=== PATIENT | female | born 1985 | race Caucasian/White ===

== ENCOUNTER 2018-10-17 07:26 | Day surgery (SDC) | payer SELFPAY ==
[2018-10-14 11:11] VITALS: BMI 23.2
[2018-10-17] VITALS (8 sets, daily range): BP systolic 93–109; BP diastolic 46–60; PULSE 61–86; RESP 14–16; TEMP 36.4–36.8; O2SAT 97–100; BMI 23.1
[2018-10-17] MEDS: Doxycycline 100 MG CAPSULE PO (07:56)
[2018-10-17 08:18] LABS: Hematocrit 39.7 % (37-47); Hemoglobin 13.8 g/dL (12.0-15.0); Mean Corp Hgb Conc 34.8 g/dL (32-36); Mean Corpuscular Hgb 32.5 pg (27.0-32.0); Mean Corpuscular Volume 93.6 fL (81-99); Mean Platelet Vol. 9.5 fl (6.2-12.0); Platelet Count 170 K/mm3 (150-450); RBC Distribution Width CV 13.1 % (11.6-14.6); RBC Distribution Width SD 44.7 fl (35.1-43.9); Red Blood Count 4.24 M/mm3 (4.2-5.4); White Blood Count 7.7 K/mm3 (4.4-11.0)
[2018-10-17 08:35] LABS: Thyroid Stim Hormone (TSH) 1.23 uIU/mL (0.358-3.74)
--- NOTE | 2018-10-17 09:00 | POC_PTH ---
PATIENT: JOHANNY CORRIGAN LOC: [facility] – [place] U#:[id number] AGE/SX: 33/F ROOM: RE10/17/[address]: Dr. Charlene Torres MD : [id number] BED: DIS: 10/17/2018 SPEC #: [id number] RECD: 10/17/18 10:09 STATUS: TOMAS VIRGIE #: [id number] FLORECITA: 10/17/18 09:[address]: Charlene Torres DEPT: SURGICAL PATHOLOGY RECD BY: Randall Kinney ENTERED: 10/17/18 13:33 SP TYPE: PROD CONC OTHR DR: Dr. Edi Hendrix MD Tissues: Product of conception, NOS Procedures: Surgery Specimen Level IV HEADER OPERATION: Dilation and curettage, suction PRE-OP DIAGNOSIS: Missed TISSUE SUBMITTED: Products of conception MICROSCOPIC DIAGNOSIS Products of conception: Immature chorionic villi, decidua and gestational endometrium (products of conception). SJ:melida 10/18/18 COMMENT The remaining specimen will be saved for the patient per protocol. MICROSCOPIC DESCRIPTION Slides are reviewed. GROSS DESCRIPTION Received in fixative is one container labeled with the patient's name and designated products of conception. The specimen consists of multiple irregular fragments of pink-red soft tissue mixed with hemorrhagic soft tissue measuring in aggregate 8 x 8 x 2 cm. tissue is not identified. Defensive Secondary Coach tissue is submitted in two cassettes. / SJ:rg 10/17/18 TC:5 CPT: 89656
[2018-10-17] MEDS: miSOPROStol 200 MCG Tablet (09:48)
--- NOTE | 2018-10-17 10:46 | DCINST_ITS ---
Discharge Diet: No Restrictions Discharge Activity: Return to Normal Activity, May Shower, May Take a Tub Bath Allergies/Adverse Reactions: Allergies No Known Allergies Allergy (Verified 10/14/18 11:15) Medications to take at Discharge NK 10/16/18 Primary Care Physician: Edi Hendrix MD [Primary Care Provider] - Test Results: Test results from this visit will be discussed in further detail at your follow- up appointment, if applicable. Please Follow Up With: Charlene Torres MD - [phone]
--- NOTE | 2018-10-17 10:46 | PCM.HPOB.BLA ---
- Problem List (1) Missed Status: Acute History and Physical Date of Admission: 10/17/18 Intake Vital Signs 10/14/18 Height 5 ft 4 in 10/14/18 Weight: 135 lb 8 oz 10/14/18 Body Mass Index (BMI) 23.2 10/14/18 Blood Pressure 108/72 Intake Visit Reasons: NOB, LMP 08/14 [employer] Required: No Is patient in pain?: No Allergies No Known Allergies Allergy (Verified 10/14/18 11:15) Medications docosahexanoic acid 200 mg capsule mg PO cap 10/14/18 [History Confirmed 10/14/18] Last Menstral Period: 08/10/18 Zika: Zika virus screening: Negative : No PFSH PFSH Medical History (Updated 10/14/18 @ 14:08 by LUIS MIGUEL Calvert) Gestational diabetes (Acute) Surgical History (Updated 10/14/18 @ 11:18 by Viviana Block) S/P tonsillectomy (Resolved) Family History (Updated 10/14/18 @ 11:18 by Viviana Block) Grandfather Diabetes Social History (Updated 10/14/18 @ 18:31 by LUIS MIGUEL Calvert) Smoking Status: Never smoker alcohol intake: never substance use type: does not use caffeine: Yes what type of physical activity do you participate in: walking do you feel safe at home: Yes additional social history: Amrit-Tc Pregancy History 7 Elective abortions Hx Para 5 Spontaneous abortions 1 Hx # Term Pregnancies Ectopic pregnancies Hx # Pregnancies Multiple births # of living children 4 Past Pregnancies Del. Date Name GA/Weeks Outcome Route Bth Weight Gen Labor Lgth Anesthesia Del Locatn Provider FOB Unknown 11/2010-Miscarriage at 12 week 08/22/05 Ish 39 live - full term 8lbs 12oz Male 12 hours epidural Sheridan Montez 03/14/07 Dori 26 still 1lbs 7oz Female Sheridan Montez 09/23/08 Bharath 39 live - full term 9lbs 5oz Male 2 hours none Sheridan Montez 08/20/11 Eric 39 live - full term 8lbs 12oz Female epidural Sheridan Montez 08/09/14 Sarah 40 live - full term 7lbs 12oz Female 12 hours none Sheridan Montez Delivery Date: No notes to display Delivery Date: 08/22/05 On 10/14/18 @ 11:21 Viviana Block No issues during or delivery. Delivery Date: 03/14/07 On 10/14/18 @ 11:22 Viviana Block Gestational diabetes. Heart defect Delivery Date: 09/23/08 On 10/14/18 @ 11:24 Viviana Block Gestational diabetes Delivery Date: 08/20/11 On 10/14/18 @ 11:25 Viviana Block Did not test for gestational diabetes she continued to check BS Delivery Date: 08/09/14 On 10/14/18 @ 11:29 Viviana Block Did not check glucose test but checked her BS. HPI NOB, LMP 08/14: Details: JOHANNY CORRIGAN is a 33 year old who presents for New OB visit. OB Visit Menstrual History Last Menstral Period: 08/10/18 Reported LMP: definite Normal amount/duration: Yes On hormonal BC at conception: No hCG+: 09/10/18 Antepartum Record Genetic Screening: Congenital Heart Defect: Patient (daughter /unknown defect), Neural Tube Defect: Other, Hemoglobinopathy Or Carrier: Other, Cystic Fibrosis: Other, Chromosome Abnormality: Patient (daughter possible trisomy 18), Yousif-Sachs: Other, Hemophilia: Other, Intellectual Disability/Autism: Other, Recurrent Loss/Stillbirth: Patient (daughter 26 wk), Other Structural Defect: Other, Other Genetic Disease: Other, Maternal Metabolic Disorder: Other Infection History: Live with someone with TB or Exposed to TB: No, Patient or Partner has history of Genital Herpes: No, Rash or Viral illness since last mentrual period: No, Prior GBS-Infected child: No, History of STD: No, HIV Infection: No, History of Hepatitis: No, Recent travel outside of [place]: No, Concern for Hep exposure: No, Varicella immune: Yes (had chicken pox) Medical History Medical History: Positive: Diabetes (gestational), Varicosities/phlebitis (legs, vulva), Seasonal allergies, Operations/hospitalizations ( X 6; tonsils), Negative: Hypertension, Heart disease, Auto-immune disorder, Kidney disease/UTI, Neurologic/epilepsy, Psychiatric, Depression/ depression, Hepatitis/liver disease, Thyroid dysfunction, Trauma/domestic violence, History of blood transfusions, D (Rh) Sensitized, Pulmonary (e.g.,TB,Asthma), Drug/latex allergies/reactions, Breast, Economic Development Specialist surgery, Anesthetic complications, History of abnormal pap, Uterine anomaly/sonia, Infertility, Anti-retroviral treatment, Relevant family history, Other ROS Const Reports as per HPI Card Denies chest pain, Denies shortness of breath Resp Denies shortness of breath GI Denies change in stools Denies abnormal vaginal bleeding, Denies difficulty urinating, Denies vaginal discharge, Denies vaginal odor, Denies vaginal itching Exam Const General: cooperative, healthy appearing, well developed Nutritional Appearance: average body habitus, well nourished Orientation: oriented x3 Neck Neck: normal visual inspection Neck mass: No Thyroid: thyroid normal Chest Chest palpation & inspection: normal inspection of the chest Breast inspection: normal inspection of the breasts, normal inspection of the axillae Resp Effort & Inspection: normal respiratory effort GI Inspection: normal to inspection Palpation: soft, no masses, nontender External Female Exam: normal external appearance, normal appearance of the urethra Urethra: normal appearance of the urethra Speculum Exam - Vagina: normal appearance of the vagina, normal vaginal discharge Speculum Exam - Cervix: normal appearance of the cervix, closed cervix, other (thin prep pap with reflex HPV, GCC collected) Bimanual Exam- Vagina & Uterus: normal bimanual exam, uterine size normal (10 weeks), uterine shape normal Bimanual Exam- Adnexa, other: normal adnexae, no adnexal masses, adnexae non-tender Other: TV US per Dr. Torres: 9w 6d fetus noted but no motion, no heart tones, no color flow on doppler. Skin General: no rashes or lesions noted, turgor normal Assessment & Plan Problems 1. Missed with demise before 20 completed weeks of gestation O02.1 Plan Discussion between patient and Dr. Torres concerning options of managment. Patient prefers intervention at this time D&C procedure discussed-risks, benefits. She wishes to proceed and this will be scheduled for patient. Coding Level of Care Code Off vis,new,level 4 Diagnoses Missed with demise before 20 completed weeks of gestation O02.1 UPDATE- I have seen the patient and performed any clinically relevant updates to the history and physical exam. Charlene Torres MD
--- NOTE | 2018-10-18 04:16 | PCM.OPRPT ---
Problem List (1) Missed Status: Acute Report of Operation Date of Procedure: 10/17/18 Pre-Operative Diagnosis: MISSED AB Post-Operative Diagnosis: same Surgery/Procedure Performed:: suction d and c Description of Surgical Findings:: 12 week uterus Type of Anesthesia:: Local MAC Special Medications: cytotec Specimen's removed: poc Drains: none Estimated Blood Loss (mL): 100 Fluids Replaced: crystalloid Description of Procedure: Patient was taken to the operating room and placed under MAC local anesthesia. She was prepped and draped in the normal sterile fashion the dorsal lithotomy position. Bladder was drained of clear urine and anterior lip of the cervix was grasped and the uterus sounded to 12 cm. Cervix was progressively dilated to allow passage of a 12mm suction curette. Progressive passes were made removing the retained products of conception without complication. Sharp curettage confirmed complete removal of the retained products. All instruments were removed from the vagina and excellent hemostasis was noted and the patient was taken to recovery in stable condition. The cervix was very soft and the uterus was noted to be a little boggy but bleeding was within normal limits, thousand micrograms of Cytotec were given rectally to help with uterine tone Grafts/Implants Used: none - Complications none
== END 2018-10-17 11:33 | disposition home or self-care (01) ==
LOC: SDC 07:28 → AC 07:29
PROVIDERS: Family Provider Family Medicine; PCP Family Medicine; Referring Provider Obstetrics & Gynecology; Visit Provider Obstetrics & Gynecology
PROC: (CPT 59820; principal; 2018-10-17 08:45)
DX: O02.1 Missed abortion (principal)
CPT/HCPCS: 01965; 59820; 36415; 84443; 85027; 86850; 86900; 88305; J7120; J2405

== ENCOUNTER → 2019-07-25 14:28 | Outpatient (CLI) | payer OTHER, SELFPAY ==
[2019-07-25 13:49] VITALS: BMI 23.1
[2019-07-25 14:56] LABS: Absolute Neutrophil Count 7.9 X10^3/uL (2.0-7.7); Basophil# 0.02 X10^3/uL; Basophil% 0.2 % (0-1); Hematocrit 40.9 % (37-47); Hemoglobin 13.8 g/dL (12.0-15.0); Lymphocyte % 14.7 % (19-41); Mean Corp Hgb Conc 33.7 g/dL (32-36); Mean Corpuscular Hgb 31.4 pg (27.0-32.0); Mean Corpuscular Volume 93.2 fL (81-99); Mean Platelet Vol. 9.4 fl (6.2-12.0); Monocyte# 0.49 X10^3/uL; Monocyte% 4.8 % (0-10); NRBC Flagged by Analyzer 0 % (0-5); Neutrophil # 7.94 X10^3/uL (2.7-7.7); Platelet Count 183 K/mm3 (150-450); RBC Distribution Width SD 44.2 fl (35.1-43.9); Red Blood Count 4.39 M/mm3 (4.2-5.4); White Blood Count 10.2 K/mm3 (4.4-11.0)
[2019-07-25 16:30] LABS: Amphetamine Urine VISTA NEGATIVE (<1000 ng/mL); Barbiturate Urine VISTA NEGATIVE (< 200 ng/mL); Benzodiazepine Urine VISTA NEGATIVE (< 200 ng/mL); Cocaine Urine VISTA NEGATIVE (< 300 ng/mL); Ecstacy Urine VISTA NEGATIVE (< 500 ng/mL); Methadone Urine VISTA NEGATIVE (< 300 ng/mL); PCP Urine VISTA NEGATIVE (< 25 ng/mL); THC Urine VISTA NEGATIVE (< 50 ng/mL); Vista UDS pH Range 6
[2019-07-25 19:49] LABS: Chlamydia Trachomatis by PCR Negative (Negative); Neisserai gonorrhoeae by PCR Negative (Negative); Probe Check PASS; Sample Adequacy Control PASS; Specimen Processing Control PASS
[2019-07-28 09:35] LABS: HIV - WCH Non-Reactive (Nonreactive); Hepatitis B Surface Antigen Non-Reactive (Nonreactive); Hepatitis C Antibody Non-Reactive (Nonreactive); Rubella IgG 344.7 IU/mL
[2019-07-31 02:30] LABS: Rapid Plasmin Reagin (RPR) NONREACTIVE (NONREACTIVE)
== END ==
PROVIDERS: PCP Family Medicine; Referring Provider Obstetrics & Gynecology; Visit Provider Obstetrics & Gynecology
DX: Z34.90 Encounter for supervision of normal pregnancy, unspecified, unspecified trimester (principal)
CPT/HCPCS: 36415; 80307; 85025; 86592; 86703; 86762; 86803; 86850; 86900; 86901; 87086; 87088; 87340; 87491; 87591

== ENCOUNTER → 2019-10-10 12:42 | Outpatient (CLI) | payer OTHER, SELFPAY ==
[2019-08-29 15:19] VITALS: BMI 23.1
--- NOTE | 2019-10-10 12:54 | US_ITS ---
STUDY: SECOND AND THIRD TRIMESTER OBSTETRICAL ULTRASOUND REASON FOR EXAM: Female, 34 years old. Anatomy. LMP: 05/25/2019. TECHNIQUE: Transabdominal and Transvaginal TECHNICAL QUALITY: Adequate. PRIOR ULTRASOUND: None. FINDINGS: There is a single intrauterine fetus. The fetus is in a cephalic presentation. There is demonstrated cardiac activity with a heart rate of 147 bpm. There is a normal amniotic fluid volume. The largest amniotic fluid pocket measures 6.4 cm. The placenta is posterior in location and is not low lying. There is evidence of a succenturiate lobe of the placenta along the anterior wall close to the cervix. There are Grade 1 placental changes. The cervix measures 5.76 cm in length. The adnexal regions are not visualized. BIOMETRY: BPD: 4.51 cm: 19 weeks, 4 days HC: 17.6 cm: 20 weeks, 0 days AC: 14.95 cm: 20 weeks, 1 days FL: 3.27 cm: 20 weeks, 1 days CI: 78.3 FL/BPD: 72.54 FL/HC: 18.6 FL/AC: 21.98 HC/AC: 1.18 age by current US: 19 weeks, 6 days. DEB by current US: 02/28/2020. Estimated weight: 337 grams, +/- 50 grams, 78 %. Age by LMP: 19 weeks, 5 days. DEB by LMP: 02/29/2020. ANATOMY: Gender: 1 Cranium: Normal lateral ventricles. Normal choroid plexus. Normal cerebellum. Normal cisterna magna. Normal face, nose and lips. Chest: Normal 4-chamber heart. Abdomen/Pelvis: Normal diaphragm. Normal stomach. Normal abdominal wall. Normal cord insertion. Normal 3 vessel cord. Normal kidneys. Normal bladder. Spine: Normal cervical spine. Normal thoracic spine. Normal lumbar spine. Normal sacrum. Extremities: Normal bilateral upper extremities. Normal bilateral lower extremities. US/OB Anatomy Scan IMPRESSION: 1. Live single intrauterine 19 weeks, 6 days. DEB is 02/28/2020. 2. EFW of 337 g. 3. Adequate amniotic fluid. 4. Posterior grade 1 placenta. There is a succenturiate lobe along the anterior wall close to the cervix. There is no evidence of previa. 5. VERTEX presentation. 6. No evidence of abnormality. Electronically Signed: Edvin Barillas DO at 16:09 EDT Tel [phone], Service support ,
== END ==
PROVIDERS: PCP Family Medicine; Referring Provider Obstetrics & Gynecology; Visit Provider Obstetrics & Gynecology
DX: Z34.80 Encounter for supervision of other normal pregnancy, unspecified trimester (principal)
CPT/HCPCS: 76805

== ENCOUNTER → 2019-12-01 10:31 | Outpatient (CLI) | payer OTHER, SELFPAY ==
[2019-12-01 09:54] VITALS: BMI 23.1
[2019-12-01 11:01] LABS: Absolute Lymphocyte Count 1.21 X10^3/uL (0.83-4.51); Basophil# 0.03 X10^3/uL; Basophil% 0.3 % (0-1); Eosinophil# 0.12 X10^3/uL; Eosinophils% 1.2 % (0-5); Hematocrit 37.1 % (37-47); Hemoglobin 12.8 g/dL (12.0-15.0); Lymphocyte # 1.21 X10^3/ul (4.0); Lymphocyte % 12.1 % (19-41); Mean Corp Hgb Conc 34.5 g/dL (32-36); Mean Corpuscular Hgb 33.2 pg (27.0-32.0); Mean Corpuscular Volume 96.1 fL (81-99); Monocyte# 0.56 X10^3/uL; Monocyte% 5.6 % (0-10); NRBC Flagged by Analyzer 0 % (0-5); Neutrophil # 8.02 X10^3/uL (2.7-7.7); Neutrophil % 80.4 % (47-70); Platelet Count 185 K/mm3 (150-450); RBC Distribution Width CV 13.1 % (11.6-14.6); RBC Distribution Width SD 45.5 fl (35.1-43.9); Red Blood Count 3.86 M/mm3 (4.2-5.4)
[2019-12-01 11:18] LABS: Hemoglobin A1c 4.6 % (3.8-5.6)
== END ==
PROVIDERS: PCP Family Medicine; Referring Provider Obstetrics & Gynecology; Visit Provider Obstetrics & Gynecology
DX: Z34.90 Encounter for supervision of normal pregnancy, unspecified, unspecified trimester (principal)
CPT/HCPCS: 36415; 83036; 85025

== ENCOUNTER → 2020-02-06 14:32 | Outpatient (CLI) | payer OTHER, SELFPAY ==
[2020-01-08 10:15] VITALS: BMI 27.8
[2020-02-06 13:48] VITALS: BMI 28.7
--- NOTE | 2020-02-06 14:35 | US_ITS ---
STUDY: SECOND AND THIRD TRIMESTER OBSTETRICAL ULTRASOUND - LIMITED REASON FOR EXAM: Female, 34 years old GROWTH LMP: 05/24/2019 PRIOR ULTRASOUND: 10/10/2019 TECHNIQUE: Transabdominal TECHNICAL QUALITY: Adequate. FINDINGS: There is a single intrauterine fetus. The fetus is in a cephalic presentation. There is demonstrated cardiac activity with a heart rate of 140 bpm. There is a normal amniotic fluid volume. The largest amniotic fluid pocket measures 7.6 cm. The amniotic fluid index (JACKIE) is 23 cm. The placenta is fundal in location. There are Grade 1 placental changes. Cervix cannot be clearly seen. BIOMETRY: BPD: 8.97 cm: 36 weeks, 2 days HC: 33.4 cm: 38 weeks, 1 days AC: 34.2 cm: 38 weeks, 1 days FL: 7.4 cm: 37 weeks, 4 days Age by LMP: 36 weeks, 6 days. DEB by LMP: 02/28/2020. age by prior US: 36 weeks, 6 days. DEB by prior US: 02/28/2020. age by current US: 37 weeks, 3 days. DEB by current US: 02/24/2020. Estimated weight: 3315 grams, +/- 497 grams, 79 percentile. US/OB Limited With Biometrics IMPRESSION: Single live intrauterine at current gestational age of 37 weeks 3 days as detailed above Electronically Signed: Alcon Bowens DO at 8:17 EST Tel , Service support ,
== END ==
PROVIDERS: PCP Family Medicine; Referring Provider Obstetrics & Gynecology; Visit Provider Obstetrics & Gynecology
DX: O09.292 Supervision of pregnancy with other poor reproductive or obstetric history, second trimester (principal); O09.299 Supervision of pregnancy with other poor reproductive or obstetric history, unspecified trimester; Z86.32 Personal history of gestational diabetes; O09.90 Supervision of high risk pregnancy, unspecified, unspecified trimester; Z3A.00 Weeks of gestation of pregnancy not specified
CPT/HCPCS: 76816; 87077; 87081

== ENCOUNTER 2020-02-11 13:40 | Inpatient (IN) | payer SELFPAY, OTHER ==
[2020-01-08 10:15] VITALS: BMI 27.8
[2020-02-11] VITALS (37 sets, daily range): BP systolic 82–112; BP diastolic 44–72; PULSE 77–109; TEMP 36.7–37.6; O2SAT 96–100; BMI 28.6; BMI 30.5
[2020-02-11] MEDS: Lactated Ringers 1,000 ML 999 ML IV ×2 (11:36→12:35)
[2020-02-11 11:50] LABS: Hematocrit 37.9 % (37-47); Hemoglobin 13.1 g/dL (12.0-15.0); Mean Corp Hgb Conc 34.6 g/dL (32-36); Mean Corpuscular Hgb 33.1 pg (27.0-32.0); Mean Corpuscular Volume 95.7 fL (81-99); Mean Platelet Vol. 9.1 fl (6.2-12.0); Platelet Count 144 K/mm3 (150-450); RBC Distribution Width CV 13.7 % (11.6-14.6); RBC Distribution Width SD 47.7 fl (35.1-43.9); Red Blood Count 3.96 M/mm3 (4.2-5.4); White Blood Count 7.4 K/mm3 (4.4-11.0)
[2020-02-11 11:58] LABS: Glucose 77 mg/dL (74-106)
[2020-02-11] MEDS: Lactated Ringers 1,000 ML 50 ML IV (14:31)
[2020-02-11] MEDS: Oxytocin 30 units/NS 500 ml 30 UNITS/500 ML IV.SOLN IV (14:44)
[2020-02-11 16:00] LABS: Bedside Glucose 81 mg/dL (70-110)
[2020-02-11 17:15] LABS: Bedside Glucose 77 mg/dL (70-110)
[2020-02-11] MEDS: Lactated Ringers 500 ML 999 ML IV (20:08)
[2020-02-11] MEDS: fentaNYL-bupivacaine (epidural) 100 ML BAG EPIDURAL (21:04)
[2020-02-11 21:55] LABS: Bedside Glucose 78 mg/dL (70-110)
[2020-02-11 21:55] LABS: Bedside Glucose 109 mg/dL (70-110)
[2020-02-11] MEDS: Oxytocin 30 units/NS 500 ml 30 UNITS/500 ML IV.SOLN 334 UNITS IV (22:35)
--- NOTE | 2020-02-11 22:41 | HP.PCM_ITS ---
- Problem List (1) tachycardia Status: Acute (2) 36 weeks gestation of Status: Acute Comment: electronic covid test ordered 02/04/2020sc (scheduled for 02/18/2020 at 0900) (3) Advanced maternal age (AMA) in Status: Acute Comment: genetic counseling provided, patient declines testing. plan 36 week growth US. US 76% growth noted (4) History of gestational diabetes in prior , currently Status: Acute Comment: x3; declined glucola- Tested blood sugars at home normal. (5) History of stillbirth in patient in second trimester, antepartum Status: Acute Comment: Heart defect, possible trisomy 18-2nd /girl- stillbirth at 26 wk (6) Influenza vaccination declined Status: Acute Comment: 12/01/2019sc (7) Placenta succenturiata Status: Acute Comment: small extra lobe, no previa. no additional fu needed. (8) Positive GBS test Status: Acute Comment: PCN in labor. (9) Status: Acute Qualifiers: Comment: Declines genetic, carrier and NTD. anatomy scan nl ordered [facility]. 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: No Is patient in pain?: No Allergies No Known Allergies Allergy (Verified 02/11/20 11:15) Medications cranberry 400 mg capsule 400 mg PO DAILY 01/08/20 [History Confirmed 02/11/20] vitamin #56-iron 35 mg and 5 mg-folic acid 1 mg-dha capsule 1 cap PO DAILY 01/08/20 [History Confirmed 02/11/20] progesterone 50 mg/mL intramuscular oil 5 mg IM DAILY 01/08/20 [History Confirmed 02/11/20] Last Menstral Period: 05/25/19 Zika: Zika virus screening: Negative : No PFSH PFSH Medical History Gestational diabetes (Acute) Surgical History S/P tonsillectomy (Resolved) Family History Grandfather Diabetes Social History (Updated 02/11/20 @ 11:[address] January Fish MD) Smoking Status: Never smoker alcohol intake: never substance use type: does not use caffeine: Yes what type of physical activity do you participate in: walking do you feel safe at home: Yes additional social history: -Tc Pregancy History 8 Elective abortions Hx Para 4 Spontaneous abortions 1 Hx # Term Pregnancies Ectopic pregnancies Hx # Pregnancies Multiple births # of living children 4 Past Pregnancies Del. Date Name GA/Weeks Outcome Route Bth Weight Infant Gen Labor Lgth Anesthesia Del Locatn Provider FOB Unknown 11/2010-Miscarriage at 12 week Unknown 10/14/18 SAB still 08/22/05 Ish 39 live - full term 8lbs 12oz Male 1 2 hours epidural Sheridan Montez 03/14/07 Dori 26 still 1lbs 7oz Female Hodan Montez 09/23/08 Bharath 39 live - full term 9lbs 5oz Male 2 hours none Sheridan Montez 08/20/11 Eric 39 live - full term 8lbs 12oz Female epidural Sheridan Montez 08/09/14 Sarha 40 live - full term 7lbs 12oz Female 12 hours none Sheridan Montez Delivery Date: No notes to display Delivery Date: No notes to display Delivery Date: 08/22/05 No issues during or delivery. Viviana Block Delivery Date: 03/14/07 Gestational diabetes. Heart defect Viviana Block Delivery Date: 09/23/08 Gestational diabetes Viviana Block Delivery Date: 08/20/11 Did not test for gestational diabetes she continued to check BS Viviana Block Delivery Date: 08/09/14 Did not check glucose test but checked her BS. Viviana Block HPI 37WK OB : Details: JOHANNY CORRIGAN is a 34 year old who presents for routine OB visit. OB Visit DEB Calculator Estimated Delivery Date Method Current WG Current Estimate 02/29/20 LMP (Certain) 37w 3d Expected Delivery Route/Plan Labor Preferences- labor support person: Tc pain management options preferred: prefers natural but open to epidural cut cord/dad catch: no : yes PP control planned: NFP discussed possible routes of delivery and associated risks: discussed possible delivery modalities and possible indications for each including R/B/A of , VAVD, FAVD, and CS. questions answered. special requests: None Specific Issue/Plans flu vaccine: declined tdap vaccine: declined rhogam: na LARC form signed: declined. movement and labor precautions reviewed. Problem list reviewed and updated with the most current plan of care details and appropriate orders placed. Relevant counseling for the gestational age provided. Continue routine care and follow up unless otherwise noted in visit notes/problem list details Initial Weight: 144 lb Date EGA Weight BP Urine Prot Glucose FHR FuHt Pres Dilation Effaced St Visit Note 08/29/19 13w 5d 149 lb (+5 lb) 116/76 Negative Negative 155 SM- no vb cramping doing well, anxiety less. new ob labs reviewed. plan wilmar stephanie scan and visit next time 10/10/19 19w 5d 152 lb (+8 lb) 106/72 150 SM- no vb cramping 11/05/19 23w 3d 156 lb (+12 lb) 104/70 Negative Negative 150 SM- no vb cramping. reviewed anatomy scan results and answered covid questions. 12/01/19 27w 1d 159 lb (+15 lb) 110/70 Negative Negative 150 28 SM- no vb lof good fm no regular ctx. reviewed home BS and mostly within normal limits. cbc and HgA1c ordered. declined flu and tdap vaccines 12/22/19 30w 1d 162 lb (+18 lb) 100/62 Negative Negative 140 30 SM- discussed brith control options- considering PPTL or vasectomy. 01/08/20 32w 4d 162 lb (+18 lb) 101/68 140 32 Cephalic SM- no vb lof good fm no regular ctx discussed varicose vein supportive therapy 01/28/20 35w 3d 167 lb 6 oz (+23 lb 6 oz) 112/78 Negative Negative 145 35 Cephalic GP - no LOF, VB, DFM, ctx. Growth US 02/05. 02/06/20 36w 5d 167 lb 2 oz (+23 lb 2 oz) 108/78 Negative Negative 150 37 Cephalic 1 50 -2 GP - no LOF, VB, DFM, ctx . GBS today. Discussed COVID testing. 02/11/20 37w 3d 167 lb (+23 lb) 110/82 Negative Negative 170 37 Cephalic 2 50 -2 GP - no LOF, VB, DFM, ctx . GBS positive. Discussed labor preferences and routes of delivery. FHR tachy initially- NST done. GP - no LOF, VB, DFM, ctx. GBS positive. Discussed labor preferences and routes of delivery. FHR tachy initially- NST done and remains tachy. Sent to triage for monitoring. ACOG First Trimester First Trimester: Desire for , Alcohol, Tobacco Cessation, Illicit/Recreational Drug/Substance Use, Intimate Partner Violence, Barriers to care, Unstable Housing, Communication Barriers, Environmental/Work Hazards, Anticipated Course of Care, Toxoplasmosis Precations, Use of Any medications, Sexual activity, Exercise, Dental Care, Sauna/Hot tub use, Seat Belt use, Childbirth classes/Hospital facilities, , Travel, Indications for US and Screening for Aneuploidy Diagnostics Diagnostics Diagnostics Blood Type A POSITIVE 07/25/19 Antibody Screen NEGATIVE 07/25/19 HIV 1&2 Antibody Non-Reactive (Nonreactive) 07/25/19 Rubella IgG Antibody 344.7 IU/mL 07/25/19 Hgb Pending 02/11/20 Hct Pending 02/11/20 RPR NONREACTIVE (NONREACTIVE) 07/25/19 Details: HIV: Urine Culture: Sequential Screen: NIPT Screen: ROS Const Reports system reviewed and no additional complaints, except as docu Eyes Reports system reviewed and no additional complaints, except as docu ENT Reports system reviewed and no additional complaints, except as docu Card Reports system reviewed and no additional complaints, except as docu Resp Reports system reviewed and no additional complaints, except as docu GI Reports system reviewed and no additional complaints, except as docu Reports system reviewed and no additional complaints, except as docu, Denies abnormal vaginal bleeding, Denies painful urination, Denies nipple discharge, Denies pelvic pain, Denies vaginal discharge, Denies vaginal odor, Denies vaginal itching Musc Reports system reviewed and no additional complaints, except as docu Skin/Breast Reports system reviewed and no additional complaints, except as docu, Denies nipple discharge Neuro Yes system reviewed and no additional complaints, except as docu Psych Reports system reviewed and no additional complaints, except as docu Endo Reports system reviewed and no additional complaints, except as docu Exam Const General: cooperative, healthy appearing, comfortable, no acute distress, well developed, well groomed Nutritional Appearance: average body habitus, well nourished Orientation: alert, awake, oriented x3 HENMT Head: normal to inspection, normocephalic, atraumatic Eyes Pupils: PERRL, accommodation normal Resp Effort & Inspection: normal respiratory effort, able to speak in complete sentences, symmetric chest movement Cardio Rate: regular rate GI Palpation: soft, no guarding, no masses, nontender Skin General: no rashes or lesions noted, elasticity normal, turgor normal Neuro General: alert, awake, oriented x3 Cranial Nerves: CN's II-XI intact bilaterally, sense of smell intact, PERRL, a ccommodation normal, EOM intact bilaterally Speech: speech normal Gait: normal gait Psych Appearance: grossly normal, well kempt Mental Status: mental status grossly normal Mood: congruent mood Affect: normal affect Speech and Movement: speech and movement normal Attitude: cooperative Thought Process: normal Thought Content: normal Judgment: judgment good Results POC Urinalysis 2 Dip (Clinic) Office Urine Glucose Negative Last Edit by Madelaine Barroso on 02/11/20 09:2 9 Office Urine Protein Negative Last Edit by Madelaine Barroso on 02/11/20 09:2 9 Assessment & Plan Problems 1. Positive GBS test B95.1 PCN in labor. 2. 36 weeks gestation of Z3A.36 electronic covid test ordered 02/04/2020sc (scheduled for 02/18/2020 at 0900) 3. Tetanus, diphtheria, and acellular pertussis (Tdap) vaccination declined Z28.21 4. Influenza vaccination declined Z28.21 12/01/2019sc 5. Placenta succenturiata O43.199 small extra lobe, no previa. no additional fu needed. 6. Supervision of high-risk O09.90 PRR DEB 02/29/20 girl - [facility] Ish, Bharath, Eric, Portillo, (-feb) Tc 7. Advanced maternal age (AMA) in genetic counseling provided, patient declines testing. plan 36 week growth US. US 76% growth noted 8. History of gestational diabetes in prior , currently O09.299; Z86.32 x3; declined glucola- Tested blood sugars at home normal. 9. 37 weeks gestation of Z3A.37 Declines genetic, carrier and NTD. anatomy scan nl ordered [facility]. declined GCT, ordered Hg A1c and checked BS x 1 week with mostly normal 10. History of stillbirth in patient in second trimester, antepartum O09.292 Heart defect, possible trisomy 18-2nd /girl-stillbirth at 26 wk Patient presents IOL for persistent tachycardia, plan management for with pitocin/AROM. Pain management: plans epidural. GBS positive - plan PCN. Management of any complications: none I have reviewed the [facility] and made any clinically relevant updates. UPDATE- I have seen the patient and performed any clinically relevant updates to the history and physical exam. January Fish MD
--- NOTE | 2020-02-11 22:43 | OP.PCM_ITS ---
Problem List (1) tachycardia Status: Acute (2) 36 weeks gestation of Status: Acute Comment: electronic covid test ordered 02/04/2020sc (scheduled for 02/18/2020 at 0900) (3) Advanced maternal age (AMA) in Status: Acute Comment: genetic counseling provided, patient declines testing. plan 36 week growth US. US 76% growth noted (4) History of gestational diabetes in prior , currently Status: Acute Comment: x3; declined glucola- Tested blood sugars at home normal. (5) History of stillbirth in patient in second trimester, antepartum Status: Acute Comment: Heart defect, possible trisomy 18-2nd /girl- stillbirth at 26 wk (6) Influenza vaccination declined Status: Acute Comment: 12/01/2019sc (7) Placenta succenturiata Status: Acute Comment: small extra lobe, no previa. no additional fu needed. (8) Positive GBS test Status: Acute Comment: PCN in labor. (9) Status: Acute Qualifiers: Comment: Declines genetic, carrier and NTD. anatomy scan nl ordered [facility]. declined GCT, ordered Hg A1c and checked BS x 1 week with mostly normal (10) Supervision of high-risk Status: Acute Comment: PRR DEB 02/29/20 girl - [facility] Ish, Bharath, Eric, Portillo, () Tc (11) Tetanus, diphtheria, and acellular pertussis (Tdap) vaccination declined Status: Acute Vaginal Delivery Maternal Presentation: Medically Indicated Induction 34-year-old G6, P4 at 37 weeks gestation admitted for induction of labor for persistent tachycardia. Patient was induced with Pitocin followed by artificial rupture of membranes. Patient made rapid cervical change to complete dilation. Method of Induction: Pitocin, Amniotomy Medical Reason for Induction: Compromise: list: - tachycardia Amniotic Membrane Rupture Type: Artificial Rupture of Membrane time: 1730 Amniotic Fluid Description: Bloody Final DEB: 02/29/20 Final DEB Source: LMP Gestational age: 37 Weeks and 3 Days Date of Procedure: 02/11/20 Pre-Operative Diagnosis: Term , induction of labor for tachycardia Post-Operative Diagnosis: Same Surgery/ Procedure Performed: Spontaneous Vaginal Delivery Type of Anesthesia: Epidural Description of Procedure: Patient began pushing and delivered the head in the ANGI presentation. The head was delivered atraumatically and a nuchal cord x1 was noted and reduced without difficulty. The anterior and posterior shoulders delivered without complication followed by the rest of the and the infant was placed on the maternal abdomen. Delayed cord clamping was employed for approximately 60 seconds. Cord was clamped and cut and gentle traction was applied to the cord and the placenta delivered spontaneously immediately following it was noted to be intact with three-vessel cord. The perineum and vagina were inspected and no laceration was noted. EBL was 200 cc. Patient and infant tolerated delivery well. Presentation: Vertex, REYNALDO Placental Delivery Description: Spontaneous Placenta Disposition: [facility] Cord Vessel Description: 3 Vessels Nuchal Cord Compression: Without compression Cord Entanglement: Around neck x 1, loose Estimated Blood Loss: 200 ml Infant A gender: Female (1 minute): 8 (5 minute): 9 Episiotomy Description: None Laceration: None Medications given after delivery: IV Pitocin Complications: None Multi Select Codes - Urinary/Genital Urinary/Genital CPT Codes: 68178 Vaginal Delivery [facility]
--- NOTE | 2020-02-11 23:08 | DCINST_ITS ---
Discharge Diet: No Restrictions Discharge Activity: Return to Normal Activity, May not drive while taking narcotic pain medications., May Shower May resume sexual activity in: 4-6 weeks Additional Activity Instructions:: Nothing in the vagina for 4-6 weeks. You may return to work/school in 6 weeks. Call your doctor if your incision/area has: Continuous Slow Oozing, Sudden Increased Bleeding, Increased Pain/ Swelling, Increased Redness, Foul Smelling Discharge Additional Instructions: If you experience any of the following, contact your healthcare provider. * Bleeding that soaks a pad every hour for 2 hours * Fever 100.4 or higher * Unrelieved incision or abdominal pain * Swelling, redness, discharge or bleeding from your incision or episiotomy site * Your incision begins to separate * Problems urinating (including inability to urinate or burning while urinating). * Visual changes * Severe headache * Flu-like symptoms * Pain or redness in one of both of your breasts * Pain, warmth, tenderness or swelling in your legs, especially the calf area * Frequent nausea and vomiting * Symptoms of depression or anxiety If you experience any of the following, call 911 or go to the nearest Emergency Room. * Chest pain * Problems breathing * Seizure activity * Partial or complete paralysis of a body part, slurred speech, weakness or drooping of the face, or a sudden inability to walk or hold your balance Allergies/Adverse Reactions: Allergies No Known Allergies Allergy (Verified 02/11/20 11:15) Medications to take at Discharge cranberry 400 mg capsule 400 mg PO DAILY 01/08/20 vitamin #56-iron 35 mg and 5 mg-folic acid 1 mg-dha capsule 1 cap PO DAILY 01/08/20 Ibuprofen [Motrin] 600 mg PO Q6H PRN PRN #30 tab 02/11/20 The following prescriptions were given: Ibuprofen [Motrin] 600 mg PO Q6H PRN PRN #30 tab PRN Reason: Pain Transmission Status: Pending to [facility] When: Call to make an appointment with your doctor in 6 weeks. If you had elevated Blood Pressure or 4th degree laceration you will need to be seen in 2 weeks. Primary Care Physician: Edi Hendrix MD [Primary Care Provider] - Test Results: Test results from this visit will be discussed in further detail at your follow- up appointment, if applicable.
[2020-02-11 23:36] LABS: Bedside Glucose 101 mg/dL (70-110)
[2020-02-12] VITALS (17 sets, daily range): BP systolic 93–114; BP diastolic 49–56; PULSE 66–82; RESP 14–16; TEMP 36.6–37.3; O2SAT 96–99
[2020-02-12] MEDS: 0.9% Saline Lock 10 ML Syringe IV (01:15)
--- NOTE | 2020-02-12 03:45 | NURSING ---
bedside report received from agata RN. this rn to assume care of pt at this time
[2020-02-12] MEDS: Ibuprofen 600 MG Tablet PO ×3 (06:12→20:36)
[2020-02-12 06:30] LABS: Bedside Glucose 80 mg/dL (70-110)
--- NOTE | 2020-02-12 09:43 | PCM.PN.OB ---
Patient Problems: Active and Suspected Problems (Last Reviewed 02/11/20 @ 09:21 by Madelaine Barroso) tachycardia (Acute) Positive GBS test (Acute) PCN in labor. 36 weeks gestation of (Acute) electronic covid test ordered 02/04/2020sc (scheduled for 02/18/2020 at 0900) Tetanus, diphtheria, and acellular pertussis (Tdap) vaccination declined (Acute) Influenza vaccination declined (Acute) 12/01/2019sc Placenta succenturiata (Acute) small extra lobe, no previa. no additional fu needed. Supervision of high-risk (Acute) PRR DEB 02/29/20 girl - [facility] Ish, Bharath, Eric, Portillo, (-feb) Tc Advanced maternal age (AMA) in (Acute) genetic counseling provided, patient declines testing. plan 36 week growth US. US 76% growth noted History of gestational diabetes in prior , currently (Acute) x3; declined glucola- Tested blood sugars at home normal. (Acute) Declines genetic, carrier and NTD. anatomy scan nl ordered [facility]. declined GCT, ordered Hg A1c and checked BS x 1 week with mostly normal History of stillbirth in patient in second trimester, antepartum (Acute) Heart defect, possible trisomy 18-2nd /girl-stillbirth at 26 wk Subjective: Patient doing well without complaints. Tolerating PO. Ambulating and voiding without difficulty. Breast feeding well. Denies chest pain, shortness of breath, calf pain/swelling, fevers, chills, lightheadedness. - Physical Exam Vitals/I&O's: Vital Signs Temp Pulse Resp BP Pulse Ox 99.1 F 74 14 95/49 L 99 02/12/20 08:55 02/12/20 09:03 02/12/20 08:55 02/12/20 09:03 02/12/20 09:02 Oxygen Delivery Method Room Air Weight: 167 lb 1.766 oz Body Mass Index (BMI) 30.5 Intake and Output for Last 24 Hours 02/10/20 02/11/20 02/12/20 23:59 23:59 23:59 Intake Total 3711.95 / 3711.95 333 / 333 Output Total 950 / 950 1600 / 1600 Balance 2761.95 / 2761.95 -1267 / -1267 General: Alert, Oriented x3, Cooperative, No apparent distress, Well developed, Well nourished HEENT: Atraumatic, PERRLA, EOMI, Normocephalic Neck: Supple, No JVD Lungs: Normal air movement Cardiovascular: Regular rate Abdomen: Soft, Non Tender, Non-Distended, - - fundus firm Extremities: No edema, No Calf Tenderness Neurological: Cranial nerves II-XII grossly intact, Neuro grossly intact Psych/Mental Status: Normal Affect, Appropriate Microbiology Past 72 Hours 02/11/20 14:15 Mucosa - Nose SARS-CoV-2 Antigen (Rapid) - Final Laboratory Results 02/11/20 11:35: WBC 7.4, RBC 3.96 L, Hgb 13.1, Hct 37.9, MCV 95.7, MCH 33.1 H, MCHC 34.6, RDW Std Deviation 47.7 H, RDW Coeff of Norma 13.7, Plt Count 144 L, MPV 9.1 02/11/20 11:35: Glucose 77 02/11/20 14:15: Blood Type A POSITIVE, Antibody Screen NEGATIVE 02/11/20 15:54: POC Glucose 81 02/11/20 17:07: POC Glucose 77 02/11/20 20:31: POC Glucose 78 02/11/20 21:51: POC Glucose 109 02/11/20 23:03: POC Glucose 101 02/12/20 06:18: POC Glucose 80 Current Medications Acetaminophen (Acetaminophen 500 Mg Tablet) 1,000 mg PO Q8H PRN PRN PRN Reason: Pain Score 1-3 Bisacodyl (Bisacodyl 10 Mg Suppository) 10 mg RECTAL UD PRN PRN Reason: If no BM Dibucaine (Dibucaine 30 Gm Tube) 1 applic TOPICAL TID PRN PRN; Protocol PRN Reason: Discomfort Hydrocortisone (Hydrocortisone 2.5% Crm) 1 applic TOPICAL TID PRN PRN; Protocol PRN Reason: Discomfort Ibuprofen (Ibuprofen 600 Mg Tablet) 600 mg PO Q6H PRN PRN PRN Reason: Pain Score 1-3 Last Admin: 02/12/20 06:12 Dose: 600 mg Documented by: Methylergonovine Maleate (Methylergonovine 0.2 Mg/Ml Ampul) 0.2 mg IM X1 PRN PRN Reason: Excess bleeding/uterine atony Ondansetron HCl (Ondansetron 4 Mg/2 Ml Vial) 4 mg IV Q4H PRN PRN PRN Reason: Nausea Oxycodone HCl (Oxycodone 5 Mg Tablet) 5 - 10 mg PO Q4H PRN PRN PRN Reason: Pain Score 4-10 Senna/Docusate Sodium (Senna/Docusate Sodium 1 Tablet) 1 - 2 tablet PO DAILY PRN PRN PRN Reason: Constipation Simethicone (Simethicone 80 Mg Tablet) 80 mg PO PCHS PRN PRN Reason: Indigestion/Stomach pain Sodium Chloride (0.9% Saline Lock 10 Ml Syringe) 5 - 15 ml IV UD PRN PRN Reason: SALINE FLUSH Last Admin: 02/12/20 01:15 Dose: 10 ml Documented by: Medical Necessity - Tobacco Use Smoking Status: Never smoker Assessment/Plan All Active Problems (Last Reviewed 02/11/20 @ 09:21 by Madelaine Barroso) tachycardia (Acute) Positive GBS test (Acute) 36 weeks gestation of (Acute) Tetanus, diphtheria, and acellular pertussis (Tdap) vaccination declined (Acute) Influenza vaccination declined (Acute) Placenta succenturiata (Acute) Supervision of high-risk (Acute) Advanced maternal age (AMA) in (Acute) History of gestational diabetes in prior , currently (Acute) (Acute) History of stillbirth in patient in second trimester, antepartum (Acute) Missed (Resolved) s/p PPD # 1 1. routine post delivery care 2. breast feeding- support given 3. rh positive 4. rubella immune
--- NOTE | 2020-02-12 20:41 | NURSING ---
large varicose veins noted in BLE
[2020-02-13 01:50] VITALS: BP 103/53; PULSE 66; RESP 18; TEMP 36.4
[2020-02-13 01:53] VITALS: BP 103/53; PULSE 66
--- NOTE | 2020-02-13 07:55 | PCM.PN.OB ---
Patient Problems: Active and Suspected Problems (Last Reviewed 02/11/20 @ 09:21 by Madelaine Barroso) tachycardia (Acute) Positive GBS test (Acute) PCN in labor. 36 weeks gestation of (Acute) electronic covid test ordered 02/04/2020sc (scheduled for 02/18/2020 at 0900) Tetanus, diphtheria, and acellular pertussis (Tdap) vaccination declined (Acute) Influenza vaccination declined (Acute) 12/01/2019sc Placenta succenturiata (Acute) small extra lobe, no previa. no additional fu needed. Supervision of high-risk (Acute) PRR DEB 02/29/20 girl - [facility] Ish, hBarath, Eric, Portillo, (-feb) Tc Advanced maternal age (AMA) in (Acute) genetic counseling provided, patient declines testing. plan 36 week growth US. US 76% growth noted History of gestational diabetes in prior , currently (Acute) x3; declined glucola- Tested blood sugars at home normal. (Acute) Declines genetic, carrier and NTD. anatomy scan nl ordered [facility]. declined GCT, ordered Hg A1c and checked BS x 1 week with mostly normal History of stillbirth in patient in second trimester, antepartum (Acute) Heart defect, possible trisomy 18-2nd /girl-stillbirth at 26 wk Subjective: Patient doing well without complaints. Tolerating PO. Ambulating and voiding without difficulty. feeding well. Denies chest pain, shortness of breath, calf pain/swelling, fevers, chills, lightheadedness. - Physical Exam Vitals/I&O's: Vital Signs Temp Pulse Resp BP Pulse Ox 97.5 F L 66 18 103/53 L 98 02/13/20 01:50 02/13/20 01:53 02/13/20 01:50 02/13/20 01:53 02/12/20 16:36 Oxygen Delivery Method Room Air Weight: 167 lb 1.766 oz Body Mass Index (BMI) 30.5 Intake and Output for Last 24 Hours 02/11/20 02/12/20 02/13/20 23:59 23:59 23:59 Intake Total 3711.95 / 3711.95 333 / 333 Output Total 950 / 950 1600 / 1600 Balance 2761.95 / 2761.95 -1267 / -1267 General: Alert, Oriented x3 Microbiology Past 72 Hours 02/11/20 14:15 Mucosa - Nose SARS-CoV-2 Antigen (Rapid) - Final Current Medications Acetaminophen (Acetaminophen 500 Mg Tablet) 1,000 mg PO Q8H PRN PRN PRN Reason: Pain Score 1-3 Bisacodyl (Bisacodyl 10 Mg Suppository) 10 mg RECTAL UD PRN PRN Reason: If no BM Dibucaine (Dibucaine 30 Gm Tube) 1 applic TOPICAL TID PRN PRN; Protocol PRN Reason: Discomfort Hydrocortisone (Hydrocortisone 2.5% Crm) 1 applic TOPICAL TID PRN PRN; Protocol PRN Reason: Discomfort Ibuprofen (Ibuprofen 600 Mg Tablet) 600 mg PO Q6H PRN PRN PRN Reason: Pain Score 1-3 Last Admin: 02/12/20 20:36 Dose: 600 mg Documented by: Methylergonovine Maleate (Methylergonovine 0.2 Mg/Ml Ampul) 0.2 mg IM X1 PRN PRN Reason: Excess bleeding/uterine atony Ondansetron HCl (Ondansetron 4 Mg/2 Ml Vial) 4 mg IV Q4H PRN PRN PRN Reason: Nausea Oxycodone HCl (Oxycodone 5 Mg Tablet) 5 - 10 mg PO Q4H PRN PRN PRN Reason: Pain Score 4-10 Senna/Docusate Sodium (Senna/Docusate Sodium 1 Tablet) 1 - 2 tablet PO DAILY PRN PRN PRN Reason: Constipation Simethicone (Simethicone 80 Mg Tablet) 80 mg PO PCHS PRN PRN Reason: Indigestion/Stomach pain Sodium Chloride (0.9% Saline Lock 10 Ml Syringe) 5 - 15 ml IV UD PRN PRN Reason: SALINE FLUSH Last Admin: 02/12/20 01:15 Dose: 10 ml Documented by: Medical Necessity - Tobacco Use Smoking Status: Never smoker Assessment/Plan All Active Problems (Last Reviewed 02/11/20 @ 09:21 by Madelaine Barroso) tachycardia (Acute) Positive GBS test (Acute) 36 weeks gestation of (Acute) Tetanus, diphtheria, and acellular pertussis (Tdap) vaccination declined (Acute) Influenza vaccination declined (Acute) Placenta succenturiata (Acute) Supervision of high-risk (Acute) Advanced maternal age (AMA) in (Acute) History of gestational diabetes in prior , currently (Acute) (Acute) History of stillbirth in patient in second trimester, antepartum (Acute) Missed (Resolved) s/p PPD # 2 1. routine post delivery care 2. breast feeding- support given 3. rh positive 4. rubella immune
[2020-02-13] MEDS: Ibuprofen 600 MG Tablet PO (08:46)
[2020-02-13 08:50] VITALS: BP 111/55; PULSE 72
[2020-02-13 09:00] VITALS: BP 111/55; PULSE 72; RESP 16; TEMP 36.6
== END 2020-02-13 09:30 | disposition home or self-care (01) | DRG 807 ==
LOC: OBT 13:43 → WP 13:43
PROVIDERS: Admitting Provider Obstetrics & Gynecology; PCP Family Medicine; Referring Provider Obstetrics & Gynecology; Visit Provider Obstetrics & Gynecology
DX: O76 Abnormality in fetal heart rate and rhythm complicating labor and delivery (principal); Z37.0 Single live birth; Z3A.37 37 weeks gestation of pregnancy; O99.824 Streptococcus B carrier state complicating childbirth; O43.193 Other malformation of placenta, third trimester; O69.1XX0 Labor and delivery complicated by cord around neck, with compression, not applicable or unspecified
CPT/HCPCS: 59025; 59050; 82947; 82962; 85027; 86850; 86900; 86901; 87426; 99218; J7120; A4216; G0378

== ENCOUNTER → 2020-03-25 | Outpatient (CLI) | payer OTHER, SELFPAY ==
[2020-03-25 11:15] VITALS: BMI 25.4
[2020-03-31 13:55] LABS: HPV APTIMA, High Risk Negative (Negative)
== END | disposition home or self-care (01) ==
LOC: LABSPEC 16:34
PROVIDERS: PCP Family Medicine; Referring Provider Obstetrics & Gynecology; Visit Provider Obstetrics & Gynecology
DX: Z12.4 Encounter for screening for malignant neoplasm of cervix (principal)
CPT/HCPCS: 87624; 88175; G0145